=== PATIENT | female | born 1955 | race Caucasian/White ===

== ENCOUNTER 2017-12-29 10:59 | Emergency (ER) | payer MEDICARE, OTHER ==
[~2017-12-29] VITALS: Ht 157.5 cm; Wt 59.0 kg
--- NOTE | 2017-12-29 11:10 | NUR ---
Dr english at the bedside for MSE.
[2017-12-29] MEDS ORDERED: PRIM50TA PO (11:34)
[2017-12-29] MEDS ORDERED: LEVO50TA8 PO (11:34)
[2017-12-29] MEDS ORDERED: SERT50TA PO (11:34)
[2017-12-29] MEDS ORDERED: NYSTATIN (11:34)
[2017-12-29] MEDS ORDERED: ALEN70TA45 PO (11:34)
[2017-12-29] MEDS ORDERED: MELA3TAB PO (11:34)
[2017-12-29] MEDS ORDERED: ERGO500014 PO (11:34)
[2017-12-29] MEDS ORDERED: DONE10TA44 PO (11:34)
[2017-12-29] MEDS ORDERED: MALA59LO5 TP (11:34)
[2017-12-29] MEDS ORDERED: [UNRECOGNIZED DRUG - OTHER] (11:34)
[2017-12-29] MEDS ORDERED: LEVE500T20 PO ×2 (11:34)
[2017-12-29] MEDS ORDERED: HALO5TAB PO (11:34)
[2017-12-29] MEDS ORDERED: DOCU100C22 PO (11:34)
[2017-12-29] MEDS ORDERED: CRAN200C PO (11:34)
[2017-12-29] MEDS ORDERED: KETOCONAZOLE2% (11:34)
[2017-12-29] MEDS ORDERED: DOXY50CA2 PO (11:34)
[2017-12-29] MEDS ORDERED: CRAN425C6 PO (11:34)
[2017-12-29] MEDS ORDERED: ASPI81TA44 PO (11:34)
[2017-12-29] MEDS ORDERED: KETOCONAZOLE (11:34)
[2017-12-29 11:45] LABS: BASOPHILS % (AUTO) 0.3 % (0.0-2.0); EOSINOPHILS # (AUTO) 0.1 K/uL (0.0-0.7); HEMATOCRIT 40.9 % (31.2-41.9); LYMPHOCYTES % (AUTO) 13.5 % (20.5-51.5); MEAN CORPUSCULAR HEMOGLOBIN 33.6 uug (24.7-32.8); MEAN CORPUSCULAR HGB CONC 34 g/dL (32.3-35.6); MEAN CORPUSCULAR VOLUME 97.9 fL (75.5-95.3); MONOCYTES # (AUTO) 0.4 K/uL (2.0-10.0); MONOCYTES % (AUTO) 5.5 % (0.0-11.0); NEUTROPHILS # (AUTO) 5.8 K/uL (1.8-8.9); NEUTROPHILS % (AUTO) 79.7 % (38.5-71.5); PLATELET COUNT (AUTO) 154 K/uL (179-408); RED BLOOD CELL COUNT(AUTO) 4.18 MIL/uL (3.63-4.92); WHITE BLOOD COUNT (AUTO) 7.3 K/uL (3.8-11.8)
[2017-12-29 11:52] LABS: CREATININE 0.7 mg/dL (0.6-1.3); POTASSIUM 3.9 mmol/L (3.5-5.1)
[2017-12-29 11:58] LABS: BILIRUBIN,TOTAL 0.2 mg/dL (0.2-1.0); TOTAL PROTEIN, SERUM 7.5 g/dL (6.4-8.2)
--- NOTE | 2017-12-29 12:19 | NUR ---
Oral care provided per MD order, Pt tolorated well.
--- NOTE | 2017-12-29 12:46 | NUR ---
Patient is resting comfortably in bed with eyes closed, NAD noted.
--- NOTE | 2017-12-29 12:55 | NUR ---
Notified [facility] of pt[facility] return, spoke to Narda. [facility] called for transfer ETA 1 hour.
--- NOTE | 2017-12-29 14:02 | NUR ---
Report given to service order dispatcher chief, from [facility]. Pt left ER in stable condition, all belonging sent w/ pt.
[2017-12-29 14:04] VITALS: BP 120/71
== END 2017-12-29 14:05 | disposition home or self-care (01) ==
LOC: ER 10:59
DX: S00.511A Abrasion of lip, initial encounter (principal); E03.9 Hypothyroidism, unspecified; G30.9 Alzheimer's disease, unspecified; F02.80 Dementia in other diseases classified elsewhere, unspecified severity, without behavioral disturbance, psychotic disturbance, mood disturbance, and anxiety; Z88.0 Allergy status to penicillin; Z79.82 Long term (current) use of aspirin; Z79.2 Long term (current) use of antibiotics; Z79.899 Other long term (current) drug therapy; W18.30XA Fall on same level, unspecified, initial encounter; Y93.89 Activity, other specified; Y92.89 Other specified places as the place of occurrence of the external cause; Y99.8 Other external cause status
CPT/HCPCS: 36415; 70030-TC; 70450; 71045; 85025; 85610; 93005; A4663